=== PATIENT | female | born 1960 | race Caucasian/White ===

== ENCOUNTER 2016-10-18 13:43 | Emergency (ER) | payer OTHER | END 2016-10-18 17:25 | disposition home or self-care (01) | LOC: FER 13:43 | DX: M54.5 Low back pain (principal); M25.551 Pain in right hip; M47.817 Spondylosis without myelopathy or radiculopathy, lumbosacral region; Z96.641 Presence of right artificial hip joint; I10 Essential (primary) hypertension; I25.10 Atherosclerotic heart disease of native coronary artery without angina pectoris | CPT/HCPCS: 72110; 73502; J1100; J1885 ==